=== PATIENT | female | born 1960 | race Caucasian/White ===

== ENCOUNTER 2017-01-10 13:40 | Inpatient (IN) | payer MEDICAID ==
[~2017-01-10] VITALS: Ht 152.4 cm; Wt 61.2 kg
[2017-01-10] MEDS ORDERED: MAG30ORA PO (14:13)
[2017-01-10] MEDS ORDERED: CLOP75TA15 PO (14:13)
[2017-01-10] MEDS ORDERED: LORA2TAB PO (14:13)
[2017-01-10] MEDS ORDERED: BISA-79 PO (14:13)
[2017-01-10] MEDS ORDERED: ACET-73 PO (14:13)
[2017-01-10] MEDS ORDERED: ALLO100T PO (14:13)
[2017-01-10] MEDS ORDERED: DIVA250T4 PO (14:13)
[2017-01-10] MEDS ORDERED: FAMO20TA8 PO (14:13)
[2017-01-10] MEDS ORDERED: HALO5TAB12 PO (14:13)
[2017-01-10] MEDS ORDERED: BENZ1TAB7 PO (14:13)
[2017-01-10] MEDS ORDERED: MULT1TAB11 PO (14:13)
[2017-01-10] MEDS ORDERED: FLUV25TA3 PO (14:13)
[2017-01-10 14:35] LABS: *BILIRUBIN,URIN NEGATIVE (NEGATIVE); *BLOOD, URINE 1+ (NEGATIVE); *CLARITY,URINE SLIGHTLY CLOUDY (CLEAR); *COLOR,URINE YELLOW (YELLOW); *KETONES,URINE NEGATIVE (NEGATIVE); *PROTEIN,URINE NEGATIVE (NEGATIVE); *UROBILINOGEN,URINE 0.2 E.U./dl (NORMAL); LEUKOCYTE ESTERASE ,URINE 2+ (NEGATIVE); NITRITE, URINE NEGATIVE (NEGATIVE); PH,URINE 6.5 (5.0-8.0); UGLUCOSE NEGATIVE (NEGATIVE)
[2017-01-10 14:40] LABS: BASOPHILS % (AUTO) 0.4 % (0.0-2.0); EOSINOPHILS # (AUTO) 0.2 K/uL (0.0-0.7); EOSINOPHILS % (AUTO) 1.6 % (0.0-7.0); HEMATOCRIT 39.4 % (37-47); HEMOGLOBIN 12.9 G/DL (12.0-16.0); LYMPHOCYTES % (AUTO) 27.8 % (20.5-51.5); MEAN CORPUSCULAR HEMOGLOBIN 26.5 UUG (27.0-31.0); MEAN CORPUSCULAR HGB CONC 33 g/dL (32.0-37.0); MEAN CORPUSCULAR VOLUME 81.3 FL (81.0-99.0); MONOCYTES # (AUTO) 1.2 K/UL (0.1-1.30); MONOCYTES % (AUTO) 11.3 % (0.0-11.0); NEUTROPHILS # (AUTO) 6.2 K/UL (1.8-8.9); NEUTROPHILS % (AUTO) 58.9 % (38.5-71.5); PLATELET COUNT (AUTO) 275 K/UL (150-450); RED BLOOD CELL COUNT(AUTO) 4.84 MIL/UL (4.2-5.4); WHITE BLOOD COUNT (AUTO) 10.6 K/UL (4.0-11.2)
[2017-01-10 14:42] LABS: CARBON DIOXIDE 30 mmol/L (21-32); CHLORIDE 102 mmol/L (98-107); GLUCOSE 127 mg/dL (74-106); UREA NITROGEN, BLOOD 16 mg/dL (7-18)
[2017-01-10 14:48] LABS: ALANINE AMINOTRANSFERASE 17 U/L (14-59); ALKALINE PHOSPHATASE 116 U/L (50-136); ASPARTATE AMINOTRANSFERASE 13 U/L (15-37); BILIRUBIN,DIRECT 0.1 mg/dL (0.0-0.2); BILIRUBIN,TOTAL 0.3 mg/dL (0.2-1.0); TOTAL PROTEIN, SERUM 7.7 g/dL (6.4-8.2)
[2017-01-10 14:50] LABS: ETHANOL < 3 MG/DL (0-0)
[2017-01-10 14:51] LABS: *AMPHETAMINE, URINE NEGATIVE (NEGATIVE); *BARBITURATE, URINE NEGATIVE (NEGATIVE); *CANNABINOID, URINE NEGATIVE (NEGATIVE); *COCCAINE, URINE NEGATIVE (NEGATIVE); *OPIATE, URINE NEGATIVE (NEGATIVE); *PHENCYCLIDINE SCREEN,URINE NEGATIVE (NEGATIVE)
[2017-01-10 14:55] LABS: BACTERIA,URINE MODERATE /HPF (NONE SEEN); SQUAMOUS EPITHELIAL CELL,UR MODERATE /HPF (NONE SEEN); WBC,URINE 80-100 /HPF (0-3)
[2017-01-10 15:11] LABS: THYROID STIMULATING HORMONE 2.382 mIU/mL (0.358-3.740)
--- NOTE | 2017-01-10 15:25 | NUR ---
Spoke with Slick Hinson for psych eval, eta 45 mins.
--- NOTE | 2017-01-10 15:36 | NUR ---
Per Dr. Steinberg pt to be admitted to tele for AMS/UTI, call placed to [facility], Dr. Awan to call back.
--- NOTE | 2017-01-10 15:58 | NUR ---
SBAR report given to Marcie HURD via telephone.
--- NOTE | 2017-01-10 17:04 | NUR ---
Pt trans to tele floor, NAD noted.
[2017-01-10 17:28] VITALS: BP 120/87
--- NOTE | 2017-01-10 18:18 | NUR ---
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 UNABLE TO PROVIDE HISTORY. IV LEFT HAND G22 INTACT, WRAPPED IN KERLIX. RON PUT ORDERS IN, ORDERS FOLLOWED THROUGH, DUSTINX NOT IN [place], WILL CALL PHARMACY. PT ATE DINNER, CALL LIGHT IN REACH, BED ALARM ON.
--- NOTE | 2017-01-10 19:30 | NUR ---
PT RECEIVED IN BED AWAY. PLEASANT ON APPROACH, BUT CONFUSED. UNABLE TO VERBALIZE NEEDS. IV INTACT/PATENT. 86 SINUS RHYTHM ON THE TELE MONITOR. BED ALARM SET. SAFETY MAINTAINED. 1:1 SITTER AT BEDSIDE. CALL LIGHT WITHIN REACH.
[2017-01-10 20:00] VITALS: BP 112/78
--- NOTE | 2017-01-10 21:45 | NUR ---
PT SHOWS SIGNS OF AGITATION. ARMS FLAILING, GRABBING AND THROWING PHONE TO GROUND. PT YELLING PROFANITIES AT THE SITTER. ADMINISTERED ATIVAN PRESCRIBED. WILL CONT TO MONITOR.
[2017-01-11] VITALS: BP 112/70
[2017-01-11 04:00] VITALS: BP 107/62
--- NOTE | 2017-01-11 04:21 | NUR ---
PT AWOKE FROM AGITATED. PT GRABBING AT IV POLE, ATTEMPTING TO RIP OFF LABELS. YELLING PROFANITIES AT SITTER. ATIVAN ADMINISTERED ORDERED. WILL CONTINUE TO MONITOR
--- NOTE | 2017-01-11 06:00 | NUR ---
END OF SHIFT NOTES. PT SLEPT INTERMITTENTLY THROUGHOUT SHIFT. 1:1 SITTER AT BEDSIDE FOR SAFETY. IN STABLE CONDITION. 81 SINUS RHYTHM ON THE TELE MONITOR. IVF INFUSING. SAFETY MAINTAINED.
[2017-01-11 06:29] LABS: BASOPHILS % (AUTO) 0.4 % (0.0-2.0); EOSINOPHILS # (AUTO) 0.2 K/uL (0.0-0.7); EOSINOPHILS % (AUTO) 2.4 % (0.0-7.0); HEMATOCRIT 38.9 % (37-47); HEMOGLOBIN 12.5 G/DL (12.0-16.0); LYMPHOCYTES # (AUTO) 2.8 K/UL (0.8-4.8); LYMPHOCYTES % (AUTO) 31.2 % (20.5-51.5); MEAN CORPUSCULAR HEMOGLOBIN 26.6 UUG (27.0-31.0); MEAN CORPUSCULAR HGB CONC 32 g/dL (32.0-37.0); MEAN CORPUSCULAR VOLUME 82.7 FL (81.0-99.0); MONOCYTES % (AUTO) 11.8 % (0.0-11.0); NEUTROPHILS # (AUTO) 4.8 K/UL (1.8-8.9); NEUTROPHILS % (AUTO) 54.2 % (38.5-71.5); PLATELET COUNT (AUTO) 261 K/UL (150-450); WHITE BLOOD COUNT (AUTO) 8.8 K/UL (4.0-11.2)
[2017-01-11 06:46] LABS: THYROID STIMULATING HORMONE 1.861 mIU/mL (0.358-3.740)
--- NOTE | 2017-01-11 07:10 | NUR ---
PT SLEEPING IN BED, AWAKENS TO NAME. NO NEEDS AT THIS TIME. IV INTACT, MACHINE BEEPING FOR AIR BUBBLE. FIXED AND RE STARTED, IV PATENT. SITTER AT BEDSIDE, CALL LIGHT IN REACH WILL CONTINUE TO MONITOR
[2017-01-11 07:37] LABS: BILIRUBIN,TOTAL 0.2 mg/dL (0.2-1.0); MAGNESIUM 1.6 mg/dL (1.8-2.4); PHOSPHOROUS 3.3 mg/dL (2.5-4.9); POTASSIUM 4.1 mmol/L (3.5-5.1); TOTAL PROTEIN, SERUM 7.2 g/dL (6.4-8.2)
--- NOTE | 2017-01-11 11:11 | NUR ---
PT ATTEMPTING TO PULL IV LINE OUT, SITTER AT BEDSIDE. REDIRECTED PATIENT, IV STILL INTACT AND PATENT, RE WRAPPED IV. PT WATCHING TV 1:1 SITTER MAINTAINED WILL CONTINUE TO MONITOR
[2017-01-11 15:10] VITALS: BP 127/65
[2017-01-11 20:04] VITALS: BP 97/69
--- NOTE | 2017-01-12 06:00 | NUR ---
PT SLEPT WELL, IN NO ACUTE DISTRESS. IV ANTIBIOTIC ADMINISTERED ORDERED, IVF RUNNING, NO INFILTRATION NOTED. NO SIGNIFICANT CHANGE OF CONDITION THROUGHOUT THE SHIFT. SAFETY MEASURES IN PLACE, 1:1 SITTER PROVIDED. WILL CONTINUE TO MONITOR.
[2017-01-12 06:31] VITALS: BP 104/78
[2017-01-12 07:04] LABS: BASOPHILS % (AUTO) 0.5 % (0.0-2.0); EOSINOPHILS # (AUTO) 0.3 K/uL (0.0-0.7); EOSINOPHILS % (AUTO) 3.9 % (0.0-7.0); HEMATOCRIT 38.1 % (37-47); HEMOGLOBIN 12.6 G/DL (12.0-16.0); LYMPHOCYTES # (AUTO) 3.4 K/UL (0.8-4.8); LYMPHOCYTES % (AUTO) 39.2 % (20.5-51.5); MEAN CORPUSCULAR HEMOGLOBIN 27.1 UUG (27.0-31.0); MEAN CORPUSCULAR HGB CONC 33 g/dL (32.0-37.0); MEAN CORPUSCULAR VOLUME 82.1 FL (81.0-99.0); MONOCYTES # (AUTO) 0.7 K/UL (0.1-1.30); MONOCYTES % (AUTO) 7.7 % (0.0-11.0); NEUTROPHILS # (AUTO) 4.4 K/UL (1.8-8.9); NEUTROPHILS % (AUTO) 48.7 % (38.5-71.5); PLATELET COUNT (AUTO) 268 K/UL (150-450); RED BLOOD CELL COUNT(AUTO) 4.64 MIL/UL (4.2-5.4); WHITE BLOOD COUNT (AUTO) 8.8 K/UL (4.0-11.2)
[2017-01-12 07:28] LABS: BILIRUBIN,TOTAL 0.2 mg/dL (0.2-1.0); CREATININE 0.9 mg/dL (0.6-1.3); MAGNESIUM 1.7 mg/dL (1.8-2.4); PHOSPHOROUS 3.7 mg/dL (2.5-4.9); POTASSIUM 4.5 mmol/L (3.5-5.1); TOTAL PROTEIN, SERUM 7.1 g/dL (6.4-8.2)
--- NOTE | 2017-01-12 14:19 | NUR ---
[employer]ER ATTEMPTED TO CHECK PT VITALS, PT SAID NO AND CLOSED ARMS. I WAS NOTIFIED AND TRIED MYSELF PT SAYING NO AND FLAILING ARMS AROUND WITH CALL LIGHT IN HAND. PT REFUSING VITALS TO BE TAKEN AT THIS TIME, WILL TRY AGAIN
--- NOTE | 2017-01-12 15:58 | NUR ---
PT STILL REFUSING VITALS TO BE TAKEN, BECOMES COMBATIVE AND CURSING AT SOAP SLABBER AND MYSELF, SAYING PT NAME IS NOT FAITH, WHEN ASKED WHAT IS PATIENT NAME PT SAYS SHE DOES NOT KNOW. WILL CONTINUE TO MONITOR CLOSELY
--- NOTE | 2017-01-12 18:21 | NUR ---
PT REMOVED DRESSING FROM IV, SITTER AT BEDSIDE. PT COMBATIVE, STILL CURSING. EXPLAINED TO PT THE NEED FOR IV WITH ANOTHER NURSE TRANSLATING. PT CONFUSED AND DOES NOT MAKE SENSE. ABLE TO FOLLOW ONE WORD COMMANDS. PT KEPT PULLING AT IV SITE AND YELLING SAYING IT NEEDS TO COME OUT. IV LEAKING ON DRESSING AND ON BED, TOLD PATIENT TO LET MYSELF REMOVE THE IV SAFELY, PT ALLOWED. IV REMOVED WITH NO REDNESS OR IRRITATION NOTED.
[2017-01-12 20:00] VITALS: BP 135/91
--- NOTE | 2017-01-13 01:51 | NUR ---
PATIENT IS ORIENTED TO SELF AND PLACE, CONFUSE BUT COOPERATIVE AT THIS TIME. INSERTED IV CATH OVER LEFT FOREARM AND RESTARTED IV FLUIDS ORDERED. SITTER. 1:1 SITTER AT BEDSIDE. VSS. CALL LIGHT WITHIN REACH. KEPT SAFE AND MONITORED. OTHERWISE PATIENT IS SLEEPING AT THIS TIME.
[2017-01-13 04:00] VITALS: BP 111/77
[2017-01-13 06:49] LABS: BILIRUBIN,TOTAL 0.2 mg/dL (0.2-1.0); CREATININE 1.1 mg/dL (0.6-1.3); MAGNESIUM 1.8 mg/dL (1.8-2.4); PHOSPHOROUS 3.4 mg/dL (2.5-4.9); POTASSIUM 4.4 mmol/L (3.5-5.1); TOTAL PROTEIN, SERUM 7.8 g/dL (6.4-8.2)
[2017-01-13 08:09] LABS: EOSINOPHILS % (AUTO) 2.9 % (0.0-7.0); HEMATOCRIT 41.2 % (37-47); HEMOGLOBIN 13.2 G/DL (12.0-16.0); LYMPHOCYTES % (AUTO) 34.7 % (20.5-51.5); MEAN CORPUSCULAR HEMOGLOBIN 26.6 UUG (27.0-31.0); MEAN CORPUSCULAR HGB CONC 32 g/dL (32.0-37.0); MEAN CORPUSCULAR VOLUME 83.1 FL (81.0-99.0); MONOCYTES % (AUTO) 8.7 % (0.0-11.0); NEUTROPHILS % (AUTO) 53.4 % (38.5-71.5); PLATELET COUNT (AUTO) 286 K/UL (150-450); RED BLOOD CELL COUNT(AUTO) 4.96 MIL/UL (4.2-5.4); WHITE BLOOD COUNT (AUTO) 10.5 K/UL (4.0-11.2)
[2017-01-13 08:10] LABS: BASOPHILS % (AUTO) 0.3 % (0.0-2.0)
--- NOTE | 2017-01-13 09:00 | NUR ---
PATIENT REFUSED ALL HER MEDICATIONS ATTEMPTED SO MANY TIMES UNABLE TO MAKE HER UNDERSTAND THAT HER DOCTOR WANTS HER TO TAKE THESE MEDICATIONS.
[2017-01-13] MEDS ORDERED: ACET325T53 PO (10:24)
[2017-01-13] MEDS ORDERED: HALO5TAB12 PO ×2 (10:24)
[2017-01-13] MEDS ORDERED: LACT1CAP57 PO (10:24)
[2017-01-13] MEDS ORDERED: CEPH500C2 PO (10:24)
[2017-01-13] MEDS ORDERED: BENZ1TAB7 PO ×2 (10:24)
--- NOTE | 2017-01-13 10:48 | NUR ---
NEW ORDER NOTED FOR PATIENT TO BE DISCHARGED TO [facility] TODAY.
--- NOTE | 2017-01-13 11:25 | NUR ---
PATIENT IS AGITATED AND RESTLESS PULLED OUT HER IV WITH SOME BLEEDING NOTED PATIENT IS SWINGING HER ARMS AND REFUSING FOR ME TO APPLY PRESSURE ON THE BLEEDING SITE HAD TO GET ANOTHER NURSE TO HOLD HER LEFT ARM BEFORE I COULD APPLY PRESSURE ON HER BLEEDING ARM PATIENT IS CONFUSED AND DISORIENTED UNABLE TO COMPREHEND ATTEMPTED TO GIVE HER ATIVAN BUT SHE SPIT THEM OUT SHE HAS A SITTER AT THE BEDSIDE TRYING TO CALM HER DOWN.
--- NOTE | 2017-01-13 11:30 | NUR ---
PATIENT IS STILL AGITATED PULLING ON EVERYTHING VERY RESTLESS PAGED DR RITTER AWAITING FOR RETURN CALL.
--- NOTE | 2017-01-13 12:15 | NUR ---
STILL NO RETURN CALL FROM DR RITTER SO I CALLED RON DHILLON AND NOTIFIED HER WITH ORDER TO GIVE PATIENT HALDOL IM AND NOTED.
--- NOTE | 2017-01-13 12:19 | NUR ---
HALDOL GIVEN INTRAMUSCULAR ORDERED WILL CONTINUE TO OBSERVE.
--- NOTE | 2017-01-13 12:50 | NUR ---
HALDOL PO HELD PATIENT WAS GIVEN HALDOL IM AT [id number]
[2017-01-13 12:54] VITALS: BP 105/59
--- NOTE | 2017-01-13 15:00 | NUR ---
PATIENT DISCHARGED PICKED UP BY MED RESPONSE IN SATISFACTORY CONDITION WITH DISCHARGE INSTRUCTIONS ANS ALL HER PERSONAL BELONGINGS.
== END 2017-01-13 15:00 | DRG 463 ==
LOC: ER 13:40 → TELE 16:49 → MED 01-11 12:10
PROVIDERS: ADMIT Internal Medicine; ATTEND Internal Medicine
DX: N39.0 Urinary tract infection, site not specified (principal); G93.40 Encephalopathy, unspecified; E44.0 Moderate protein-calorie malnutrition; B96.20 Unspecified Escherichia coli [E. coli] as the cause of diseases classified elsewhere; E83.42 Hypomagnesemia; I48.91 Unspecified atrial fibrillation; E78.1 Pure hyperglyceridemia; D63.8 Anemia in other chronic diseases classified elsewhere; F25.9 Schizoaffective disorder, unspecified; K21.9 Gastro-esophageal reflux disease without esophagitis; F29 Unspecified psychosis not due to a substance or known physiological condition; R73.9 Hyperglycemia, unspecified; M10.9 Gout, unspecified
CPT/HCPCS: 36415; 70030-TC; 70450; 71010; 80307; 83735; 84100; 84443; 85025; 87077; 87086; 93005; A4663; G0480; J0696; J1630; J3475; J3490; J7030; J7060